=== PATIENT | male | born 1975 | race Caucasian/White ===

== ENCOUNTER 2016-06-10 13:59 | Emergency (ER) | payer SELFPAY ==
[~2016-06-10] VITALS: Ht 172.7 cm; Wt 78.6 kg
[2016-06-10] MEDS ORDERED: PERCOCET 5/31 TABLET PO (15:56)
[2016-06-10 16:39] VITALS: BP 124/94
[2016-06-10 17:46] LABS: EOSINOPHIL (%) 0.1 % (0-5); HEMATOCRIT 47.1 % (38.0-50.0); IMMATURE GRANULOCYTE (%) 0.4 % (0.0-0.7); IMMATURE GRANULOCYTE COUNT 0.1 K/uL; INSTRUMENT ABS NEUTROPHIL CT 12.7 K/uL; LYMPHOCYTE COUNT 1.7 K/uL (1.0-2.8); MCH 29.9 PG (29.0-34.0); MCHC 32.9 G/DL (30.0-36.0); MCV 90.8 FL (86-99); MEAN PLAT.VOLUME 10.9 uM^3 (9.0-12.4); MONOCYTE (%) 7.2 % (3-12); MONOCYTE COUNT 1.1 K/uL (0-0.8); NEUTROPHIL (%) 81.3 % (45-76); NEUTROPHIL COUNT 12.7 K/uL (1.8-6.4); PLATELET COUNT 221 K/uL (156-360); RBC DIS.WIDTH-CV 12.4 % (11.8-14.6); RBC DIS.WIDTH-SD 41.2 % (39-53); RED BLOOD COUNT 5.19 M/uL (4.00-5.50); WHITE BLOOD COUNT 15.6 K/uL (4.1-10.2)
[2016-06-10 17:54] LABS: CHLORIDE 105 mEq/L (99-109); POTASSIUM 4.6 mEq/L (3.7-5.4); SODIUM 139 mEq/L (136-147)
[2016-06-10 17:55] LABS: GLUCOSE 94 mg/dL (70-99)
[2016-06-10 17:56] LABS: INTER. NORMALIZED RATIO 1.1; PROTHROMBIN TIME 10.7 (9.2-11.2); PTT 25.8 (25-32)
[2016-06-10 17:57] LABS: ANION GAP 11 MEQ/L (2-14)
[2016-06-10 17:59] LABS: GFR ESTIMATE (CALCULATED) > 59 mL/min/
[2016-06-10 18:00] LABS: UREA NITROGEN (BUN) 14 mg/dL (9-23)
== END 2016-06-10 16:48 | disposition home or self-care (01) ==
LOC: EME 13:59
PROVIDERS: Physician Assistant
PROC: 2W3QX1Z Immobilization of Right Lower Leg using Splint (ICD-10-PCS; principal; 2016-06-10)
DX: S82.841A Displaced bimalleolar fracture of right lower leg, initial encounter for closed fracture (principal); X58.XXXA Exposure to other specified factors, initial encounter
CPT/HCPCS: 73600; 73610; 80048; 85025; 85610; 85730; 99281; 99284; J3010